=== PATIENT | female | born 1950 | race Hispanic/Latino ===

== ENCOUNTER → 2019-11-16 | Outpatient (CLI) | payer MEDICARE ==
[~2019-11-16] MED LIST: IOPAMIDOL 370 MG/ML 200 ML INFUS..BTL INJ ONE; SODIUM CHLORIDE 0.9% 50ML 50 ML ONE
[2019-11-16 15:57] LABS: BLOOD UREA NITROGEN 13 mg/dL (7-26); BUN/CREATININE RATIO 16 (6-25); CREATININE, SERUM 0.82 mg/dL (0.57-1.11); EST GLOMERULAR FILTRATION RATE > 60 ML/MIN (60-)
--- NOTE | 2019-11-16 17:17 | Diagnostic Imaging Report ---
CT of the chest with contrast, 11/16/2019 History: Cough, shortness of breath, acute bronchitis. Comparison: None available. Technique: Multidetector CT scanning of the chest was performed from the level of the thoracic inlet to the upper abdomen with IV contrast. Images were reformatted into coronal and sagittal planes. Dose reduction: The examination was performed according to departmental dose-optimization program which includes automated exposure control, adjustment of the mA and/or kV according to patient size and/or use of iterative reconstruction technique. Findings: There is no axillary, mediastinal, or hilar lymphadenopathy. The visualized portions of the thyroid gland are within normal limits. The heart is within normal limits of size. There is no pericardial effusion. The thoracic aorta is of normal course and caliber. The pulmonary artery is normal in caliber. The trachea and central airways are clear. The lungs demonstrate scattered areas of atelectasis in the bilateral lower lobes and lingula. No suspicious pulmonary nodules are identified. There is no focal consolidation. No pleural effusion or pneumothorax. There is a moderate hiatal hernia. Limited evaluation of the upper abdomen demonstrates no focal hepatic lesions in the visualized portions of the liver. The spleen is within normal limits. Bilateral adrenal glands are unremarkable. No acute osseous abnormalities are identified. IMPRESSION: 1. No CT evidence of acute thoracic abnormality. 2. No suspicious pulmonary nodule. 3. Moderate hiatal hernia. Signed by: Levar Gill MD on 11/16/2019 5:15 PM
== END ==
LOC: CT 15:02
PROVIDERS: ATTEND Family Medicine
DX: J20.9 Acute bronchitis, unspecified (principal)
CPT/HCPCS: 36415; 71260; 82565; 84520; Q9967